=== PATIENT | male | born 1960 | race Caucasian/White ===

== ENCOUNTER 2017-06-12 12:21 | Emergency (ER) | payer BC ==
[~2017-06-12] VITALS: Ht 175.3 cm; Wt 78.0 kg
[2017-06-12 12:26] VITALS: BP 154/79; PULSE 109; RESP 19; TEMP 98.2; O2SAT 98
== END 2017-06-12 14:00 | disposition left against medical advice (07) ==
LOC: NEPD 12:21
DX: J00 Acute nasopharyngitis [common cold] (principal)
CPT/HCPCS: 99281

== ENCOUNTER 2017-06-15 09:14 | Emergency (ER) | payer SELFPAY ==
[~2017-06-15] VITALS: Ht 175.3 cm; Wt 78.0 kg
[2017-06-15 09:33] VITALS: BP 171/88; PULSE 97; RESP 19; TEMP 98.4; O2SAT 95
[2017-06-15] MEDS ORDERED: AZIT500T2 PO (11:18)
[2017-06-15] MEDS ORDERED: BENZ100 PO (11:18)
--- NOTE | 2017-06-15 11:22 | PD ---
HPI Chief Complaint: Cold / Flu Symptoms Time Seen by Provider: 11:10 Travel History International Travel<30 days: No Contact w/Intl Traveler<30days: No Traveled to known affect area: No History of Present Illness HPI 56-year-old male presents to the ED for evaluation one week history sore throat , cough occasionally productive of mucus. Patient denies fever, chills, ear pain, sinus congestion, rhinorrhea. He did not receive this years flu vaccine. He endorses several sick contacts at work. He treated at home with Mucinex and NyQuil with no improvement of symptoms. He is a current pack a day smoker. [facility]LY [facility] Social History Tobacco Use: Yes (1 PPD) Allergies-Medications (Allergen,Severity, Reaction): Coded Allergies: Penicillins (Verified Allergy, Severe, Swelling, 06/15/17) ANGIOEDEMA lidocaine (Verified Allergy, Severe, Swelling, 06/15/17) SLIGHT LIP SWELLING Reported Meds & Prescriptions Reported Meds & Active Scripts Active Tessalon Perles (Benzonatate) 100 Mg Cap 200 Mg PO TID PRN Azithromycin 500 Mg Tab 500 Mg PO DAILY Review of Systems Except as stated in HPI: all other systems reviewed are Neg Physical Exam Narrative GENERAL: Well-nourished, well-developed white male in NAD. SKIN: Warm and dry. HEAD: Normocephalic. Atraumatic. EYES: No scleral icterus. No injection or drainage. PERRLA. EOMI. ENT: Pearly crawford tympanic membranes bilaterally. Nasal mucosa is moist. Oropharynx erythematous, scant white exudates. No edema. Uvula midline. Airway patent. NECK: Supple, trachea midline. No JVD. Positive anterior cervical lymphadenopathy. CARDIOVASCULAR: Regular rate and rhythm without murmurs, gallops, or rubs. RESPIRATORY: Breath sounds clear and equal bilaterally. No accessory muscle use. GASTROINTESTINAL: Abdomen soft, non-tender, nondistended. + Bowel sounds MUSCULOSKELETAL: No cyanosis, or edema. BACK: Nontender without obvious deformity. No CVA tenderness. Data Data Last Documented VS Vital Signs Date Time Temp Pulse Resp B/P (MAP) Pulse Ox O2 Delivery O2 Flow Rate FiO2 06/15/17 09:33 98.4 97 19 171/88 (115) 95 MDM Medical Decision Making Medical Screen Exam Complete: Yes Emergency Medical Condition: Yes Differential Diagnosis Upper airway cough syndrome versus pharyngitis versus upper respiratory infection versus strep pharyngitis versus other Narrative Course 56-year-old male presents to the ED for evaluation one week history sore throat , cough occasionally productive of mucus. Patient denies fever, chills, ear pain, sinus congestion, rhinorrhea. He did not receive this years flu vaccine. He endorses several sick contacts at work. He treated at home with Mucinex and NyQuil with no improvement of symptoms. He is a current pack a day smoker. Patient afebrile on presentation. ENT exam reveals posterior oropharyngeal erythema and scant white exudates. Lungs clear to auscultation bilaterally. Will treat with azithromycin 500 mg 5 days and a course of Tessalon Perles. Patient's instructed to quit smoking, take antibiotics as prescribed, return for worsening symptoms, follow with ENT. He is stable and discharged home. Diagnosis Primary Impression: Pharyngitis Qualified Codes: J02.9 - Acute pharyngitis, unspecified Referrals: Ear / Nose / Throat Specialist Additional Instructions: Stop smoking! Begin antibiotics today and take them until every pill is gone. Tessalon Perles every 8 hours to reduce urge to cough. Continue with OTC symptomatic treatment. Return to the ED for worsening symptoms or any urgent or emergent medical condition. Med/Other Pt SpecificInfo: Prescription(s) given Scripts Benzonatate (Tessalon Perles) 100 Mg Cap 200 MG PO TID Y for COUGH, #15 CAP 0 Refills Prov: Tatiana Aponte MD 06/15/17 Azithromycin (Azithromycin) 500 Mg Tab 500 MG PO DAILY for Infection, #5 TAB 0 Refills Prov: Tatiana Aponte MD 06/15/17 Disposition: 01 DISCHARGE HOME Condition: Stable Sulma Muñiz Jun 15, 2017 11:22
== END 2017-06-15 12:03 | disposition home or self-care (01) ==
LOC: NEPK 09:14
DX: J02.9 Acute pharyngitis, unspecified (principal); F17.200 Nicotine dependence, unspecified, uncomplicated
CPT/HCPCS: 99283